=== PATIENT | male | born 2000 | race Caucasian/White ===

== ENCOUNTER 2023-05-09 20:47 | Inpatient (IN) | payer OTHER ==
[2023-05-09 21:54] LABS: URINE APPEARANCE Clear; URINE BILIRUBIN 1+ (NEGATIVE); URINE COLOR Yellow; URINE GLUCOSE (UA) 2+ (NEGATIVE); URINE KETONE 4+ (NEGATIVE); URINE LEUK ESTERASE Negative (NEGATIVE); URINE NITRITE Negative (NEGATIVE); URINE PROTEIN 2+ (NEGATIVE); URINE UROBILINOGEN 0.2 mg/dL (0.2-1.0)
[2023-05-09] MEDS ORDERED: SODIUM CHLORIDE 0.9% 500 ML INFUS.BAG IV ONE (22:21)
[2023-05-09] MEDS ORDERED: ACETAMINOPHEN 1000 MG/100 ML BAG IVPB ONE (22:22)
[2023-05-09 22:27] LABS: EPI CELLS 8.4 /uL (0-25.1); HYALINE CASTS 4.27 /uL (0-3.1); URINE BACTERIA 1.9 /uL (0-1359); URINE RBC 25.5 /uL (0-23.9); URINE WBC 11.1 /uL (0-25.8)
[2023-05-09] MEDS ORDERED: ACETAMINOPHEN INJECTION 100 ML IVPB ONE (22:55)
[2023-05-09 23:38] LABS: BASO % 0.3 % (0-2.0); EOS % 0.2 % (0-4.5); HEMOGLOBIN 17.4 GM/dL (11.7-16.9); LYMPH % 21.6 % (8-40); MCH 27.7 pg (25.7-33.7); MCHC 34.7 g/dl (32.0-35.9); MEAN CELL VOLUME 79.8 fl (80-96); MEAN PLT VOLUME 9.7 fl (7.5-11.1); MONO % 8.9 % (3.8-10.2); PLATELET COUNT 385 10^3/uL (134-434); RBC 6.27 M/mm3 (4.00-5.60); RDW 13.6 % (11.9-15.9); WHITE BLOOD COUNT 10.1 K/mm3 (4.0-10.0)
[2023-05-09 23:43] LABS: INR 1.08 (0.83-1.09); PROTHROMBIN TIME (PATIENT) 12.5 SEC (9.7-13.0)
[2023-05-09 23:53] LABS: CHLORIDE 98 mmol/L (98-107); POTASSIUM 4.9 mmol/L (3.5-5.1); SODIUM 135 mmol/L (136-145)
[2023-05-09 23:54] LABS: CALCIUM 9.6 mg/dL (8.5-10.1)
[2023-05-09 23:55] LABS: ALBUMIN 4.4 g/dl (3.4-5.0); ANION GAP 22 mmol/L (4-13); BLOOD UREA NITROGEN 16.5 mg/dL (7-18); CO2 15 mmol/L (21-32); MAGNESIUM 2.1 mg/dL (1.8-2.4)
[2023-05-09 23:58] LABS: CREATININE 1.6 mg/dL (0.55-1.3); SGOT/AST 36 U/L (15-37); SGPT/ALT 128 U/L (13-61)
[2023-05-10] LABS: BILIRUBIN,TOTAL 0.9 mg/dL (0.2-1); TOT PROT 8.8 g/dl (6.4-8.2)
[2023-05-10 00:01] LABS: ALK PHOS 120 U/L (45-117)
[2023-05-10 00:43] LABS: GLUCOSE,RANDOM 489 mg/dL (74-106)
[2023-05-10] MEDS ORDERED: SODIUM CHLORIDE 0.9% 500 ML INFUS.BAG IV ONE (00:48)
[2023-05-10 02:58] LABS: VENOUS BASE EXCESS -15.9 mmol/L (-2-2); VENOUS O2 SATURATION 67.1 % (70-80); VENOUS PCO2 35.5 mmHg (38-52)
[2023-05-10 03:01] LABS: VENOUS PH 7.148 (7.310-7.410)
[2023-05-10] MEDS ORDERED: INSULIN REGULAR HUMAN 100 UNITS/ML *VIAL IVPUSH ONE (03:02)
[2023-05-10] MEDS ORDERED: POTASSIUM CHLORIDE 10 MEQ in SODIUM CHLORIDE 1,000 ML IVPB SCH (03:15)
[2023-05-10] MEDS ORDERED: INSULIN REGULAR HUMAN 100 UNITS/ML *VIAL SQ ONE (03:18)
[2023-05-10 03:23] LABS: POTASSIUM 4.8 mmol/L (3.5-5.1)
[2023-05-10 03:25] LABS: BLOOD UREA NITROGEN 13.4 mg/dL (7-18)
[2023-05-10 03:28] LABS: CREATININE 1.3 mg/dL (0.55-1.3)
[2023-05-10 03:32] LABS: CALCIUM 7.9 mg/dL (8.5-10.1)
[2023-05-10] MEDS ORDERED: DEXTROSE 50%-WATER 25 GM/50 ML DISP.SYRIN IVPUSH PRN (03:39)
[2023-05-10] MEDS ORDERED: LACTATED RINGERS SOLUTION 1000 ML INFUS.BAG IV ONE (03:39)
[2023-05-10] MEDS ORDERED: D5-1/2NS+20 MEQ KCL - 20 MEQ/1,000 ML INFUS.BAG IV SCH ×2 (03:45→04:15)
[2023-05-10] MEDS ORDERED: INSULIN REGULAR 100 UNITS in SODIUM CHLORIDE 99 ML IVPB SCH (03:45)
[2023-05-10] MEDS ORDERED: ONDANSETRON 4 MG/2 ML VIAL IVPUSH PRN (04:16)
[2023-05-10] MEDS: SODIUM CHLORIDE 0.9%/KCL 20 MEQ/1,000 ML INFUS.BAG IV SCH (05:30)
[2023-05-10 06:03] VITALS: BMI 39.1
[2023-05-10 08:24] LABS: POTASSIUM 3.9 mmol/L (3.5-5.1)
[2023-05-10 08:26] LABS: BLOOD UREA NITROGEN 12.4 mg/dL (7-18)
[2023-05-10 08:29] LABS: CREATININE 1.1 mg/dL (0.55-1.3)
[2023-05-10] MEDS: MUPIROCIN 2% TOPICAL OINTMENT FOR DECOLONIZATION NS SCH ×2 (11:04→21:45)
[2023-05-10 12:01] LABS: POTASSIUM 3.7 mmol/L (3.5-5.1)
[2023-05-10 12:05] LABS: CALCIUM 8.2 mg/dL (8.5-10.1)
[2023-05-10 12:06] LABS: BLOOD UREA NITROGEN 9.4 mg/dL (7-18)
[2023-05-10 12:24] LABS: TOT PROT 6.2 g/dl (6.4-8.2)
[2023-05-10] MEDS ORDERED: INSULIN (LEVEMIR) 100 UNITS/ML UNITS SQ SCH ×4 (13:00→22:00)
[2023-05-10 16:21] LABS: BLOOD UREA NITROGEN 7.8 mg/dL (7-18); CALCIUM 7.9 mg/dL (8.5-10.1)
[2023-05-10 16:24] LABS: CREATININE 1.1 mg/dL (0.55-1.3)
[2023-05-10 16:26] LABS: BILIRUBIN,TOTAL 1.2 mg/dL (0.2-1); TOT PROT 6.1 g/dl (6.4-8.2)
[2023-05-10] MEDS: INSULIN SLIDING SCALE (NOVOLOG) 1 VIAL SQ SCH ×2 (16:27→21:45)
[2023-05-10 16:28] LABS: MAGNESIUM 1.7 mg/dL (1.8-2.4)
[2023-05-10] MEDS ORDERED: CHLORHEXIDINE GLUCONATE 4% CLEANSER FOR DECOLONIZATION TP SCH (22:00)
[2023-05-11] MEDS: SODIUM CHLORIDE 0.9%/KCL 20 MEQ/1,000 ML INFUS.BAG IV SCH (01:39)
[2023-05-11] MEDS ORDERED: ONDANSETRON 4 MG/2 ML VIAL IVPUSH PRN (05:02)
[2023-05-11] MEDS: INSULIN SLIDING SCALE (NOVOLOG) 1 VIAL SQ SCH ×4 (06:47→21:58)
[2023-05-11] MEDS: INSULIN (NOVOLOG) ASPART 100 UNITS/ML 10ML VIAL SQ SCH ×3 (08:19→16:20)
[2023-05-11] MEDS ORDERED: MUPIROCIN 2% TOPICAL OINTMENT FOR DECOLONIZATION NS SCH (10:00)
[2023-05-11] MEDS ORDERED: INSULIN (LEVEMIR) 100 UNITS/ML UNITS SQ SCH ×4 (10:00→17:52)
[2023-05-11 10:32] LABS: INR 1.05 (0.83-1.09); PROTHROMBIN TIME (PATIENT) 12.2 SEC (9.7-13.0)
[2023-05-11 10:49] LABS: POTASSIUM 4.3 mmol/L (3.5-5.1)
[2023-05-11 10:55] LABS: CALCIUM 8.7 mg/dL (8.5-10.1)
[2023-05-11 10:56] LABS: ALBUMIN 3.5 g/dl (3.4-5.0); BLOOD UREA NITROGEN 7.1 mg/dL (7-18); MAGNESIUM 1.7 mg/dL (1.8-2.4)
[2023-05-11 10:59] LABS: PHOSPHOROUS 2.1 mg/dL (2.5-4.9)
[2023-05-11 11:00] LABS: CREATININE 0.9 mg/dL (0.55-1.3)
[2023-05-11 11:01] LABS: BILIRUBIN,TOTAL 1.5 mg/dL (0.2-1)
[2023-05-11 11:20] LABS: BASO % 0.5 % (0-2.0); EOS % 0.6 % (0-4.5); HEMATOCRIT 42.1 % (35.4-49); LYMPH % 29.3 % (8-40); MCH 28.1 pg (25.7-33.7); MCHC 35.6 g/dl (32.0-35.9); MEAN PLT VOLUME 9.6 fl (7.5-11.1); MONO % 8.4 % (3.8-10.2); NEUT % 61.2 % (42.8-82.8); PLATELET COUNT 334 10^3/uL (134-434); RBC 5.32 M/mm3 (4.00-5.60); WHITE BLOOD COUNT 8.6 K/mm3 (4.0-10.0)
[2023-05-11] MEDS ORDERED: INSULIN SLIDING SCALE (NOVOLOG) 1 VIAL SQ ONE (15:20)
[2023-05-11 15:43] LABS: POTASSIUM 3.9 mmol/L (3.5-5.1)
[2023-05-11 15:45] LABS: BLOOD UREA NITROGEN 9.2 mg/dL (7-18)
[2023-05-11 15:49] LABS: CREATININE 1.2 mg/dL (0.55-1.3)
[2023-05-11] MEDS ORDERED: MAGNESIUM SULF 50% (8.12 MEQ/2 ML-1 GM VIAL) IVPB ONE (17:25)
[2023-05-11] MEDS ORDERED: SODIUM PHOSPHATE - 30 MM in SODIUM CHLORIDE 250 ML IVPB ONE (18:15)
[2023-05-11] MEDS ORDERED: CHLORHEXIDINE GLUCONATE 4% CLEANSER FOR DECOLONIZATION TP SCH (22:00)
[2023-05-12] MEDS: INSULIN SLIDING SCALE (NOVOLOG) 1 VIAL SQ SCH ×7 (05:04→16:01)
[2023-05-12] MEDS: INSULIN (NOVOLOG) ASPART 100 UNITS/ML 10ML VIAL SQ SCH (06:42)
[2023-05-12] MEDS ORDERED: INSULIN (NOVOLOG) ASPART 100 UNITS/ML 10ML VIAL SQ SCH (07:45)
[2023-05-12 08:33] LABS: BASO % 0.6 % (0-2.0); EOS % 0.9 % (0-4.5); HEMATOCRIT 40.1 % (35.4-49); HEMOGLOBIN 14.4 GM/dL (11.7-16.9); MCH 28.2 pg (25.7-33.7); MCHC 35.9 g/dl (32.0-35.9); MEAN CELL VOLUME 78.5 fl (80-96); MEAN PLT VOLUME 9.2 fl (7.5-11.1); MONO % 10.6 % (3.8-10.2); NEUT % 46.9 % (42.8-82.8); PLATELET COUNT 285 10^3/uL (134-434); RBC 5.11 M/mm3 (4.00-5.60); RDW 13.2 % (11.9-15.9); WHITE BLOOD COUNT 6.6 K/mm3 (4.0-10.0)
[2023-05-12] MEDS ORDERED: INSULIN SLIDING SCALE (NOVOLOG) 1 VIAL SQ ONE (08:40)
[2023-05-12 08:52] LABS: POTASSIUM 3.9 mmol/L (3.5-5.1)
[2023-05-12 08:58] LABS: ALBUMIN 3.2 g/dl (3.4-5.0); CALCIUM 8.4 mg/dL (8.5-10.1); MAGNESIUM 1.9 mg/dL (1.8-2.4)
[2023-05-12 08:59] LABS: BLOOD UREA NITROGEN 9.5 mg/dL (7-18)
[2023-05-12 09:01] LABS: CREATININE 0.9 mg/dL (0.55-1.3); PHOSPHOROUS 2.8 mg/dL (2.5-4.9)
[2023-05-12 09:03] LABS: BILIRUBIN,TOTAL 0.9 mg/dL (0.2-1); TOT PROT 6.5 g/dl (6.4-8.2)
[2023-05-12] MEDS: INSULIN (NOVOLOG MIX 70/30) 100 UNITS/ML MDV SQ SCH (16:55)
[2023-05-12] MEDS: INSULIN (LEVEMIR) 100 UNITS/ML UNITS SQ SCH (21:13)
[2023-05-12] MEDS ORDERED: INSULIN (LEVEMIR) 100 UNITS/ML UNITS SQ SCH (22:00)
[2023-05-13] MEDS ORDERED: INSULIN (LEVEMIR) 100 UNITS/ML UNITS SQ SCH ×2 (06:00→07:51)
[2023-05-13] MEDS: INSULIN (LEVEMIR) 100 UNITS/ML UNITS SQ SCH ×3 (06:42→21:54)
[2023-05-13] MEDS: INSULIN (NOVOLOG MIX 70/30) 100 UNITS/ML MDV SQ SCH ×2 (06:44→16:37)
[2023-05-13] MEDS: INSULIN SLIDING SCALE (NOVOLOG) 1 VIAL SQ SCH ×3 (06:47→16:36)
[2023-05-13] MEDS ORDERED: INSULIN (NOVOLOG MIX 70/30) 100 UNITS/ML MDV SQ ONE (07:52)
[2023-05-13] MEDS ORDERED: INSULIN (LEVEMIR) 100 UNITS/ML UNITS SQ ONE (07:52)
[2023-05-13 09:45] LABS: POTASSIUM 3.8 mmol/L (3.5-5.1)
[2023-05-13 09:49] LABS: BASO % 0.7 % (0-2.0); EOS % 1.3 % (0-4.5); HEMATOCRIT 41.1 % (35.4-49); LYMPH % 37.9 % (8-40); MCH 28.9 pg (25.7-33.7); MCHC 36.6 g/dl (32.0-35.9); MEAN CELL VOLUME 78.9 fl (80-96); MEAN PLT VOLUME 9.5 fl (7.5-11.1); MONO % 9.7 % (3.8-10.2); NEUT % 50.4 % (42.8-82.8); PLATELET COUNT 306 10^3/uL (134-434); RBC 5.21 M/mm3 (4.00-5.60); RDW 13.4 % (11.9-15.9); WHITE BLOOD COUNT 6.5 K/mm3 (4.0-10.0)
[2023-05-13 09:59] LABS: CALCIUM 8.9 mg/dL (8.5-10.1)
[2023-05-13 10:00] LABS: ALBUMIN 3.4 g/dl (3.4-5.0); BLOOD UREA NITROGEN 11.3 mg/dL (7-18); MAGNESIUM 1.9 mg/dL (1.8-2.4)
[2023-05-13 10:03] LABS: CREATININE 0.8 mg/dL (0.55-1.3); PHOSPHOROUS 2.7 mg/dL (2.5-4.9)
[2023-05-13 10:04] LABS: BILIRUBIN,TOTAL 1.5 mg/dL (0.2-1)
[2023-05-13] MEDS ORDERED: DEXAMETHASONE 0.5 MG TABLET PO ONE (22:00)
[2023-05-14] MEDS: INSULIN (NOVOLOG MIX 70/30) 100 UNITS/ML MDV SQ SCH (06:42)
[2023-05-14] MEDS: INSULIN SLIDING SCALE (NOVOLOG) 1 VIAL SQ SCH ×2 (06:47→11:28)
[2023-05-14 09:44] LABS: BASO % 0.7 % (0-2.0); EOS % 0.2 % (0-4.5); HEMATOCRIT 42.9 % (35.4-49); HEMOGLOBIN 15.2 GM/dL (11.7-16.9); LYMPH % 27.2 % (8-40); MCH 28.1 pg (25.7-33.7); MCHC 35.3 g/dl (32.0-35.9); MEAN CELL VOLUME 79.5 fl (80-96); MEAN PLT VOLUME 9.5 fl (7.5-11.1); MONO % 6.3 % (3.8-10.2); NEUT % 65.6 % (42.8-82.8); PLATELET COUNT 335 10^3/uL (134-434); RDW 13.7 % (11.9-15.9); WHITE BLOOD COUNT 7.1 K/mm3 (4.0-10.0)
[2023-05-14 09:46] LABS: POTASSIUM 4.5 mmol/L (3.5-5.1)
[2023-05-14 10:10] LABS: ALBUMIN 3.5 g/dl (3.4-5.0); BLOOD UREA NITROGEN 11.1 mg/dL (7-18); CALCIUM 9.4 mg/dL (8.5-10.1)
[2023-05-14 10:13] VITALS: RESP 18
[2023-05-14 10:13] LABS: CREATININE 0.9 mg/dL (0.55-1.3)
[2023-05-14 10:15] LABS: TOT PROT 7.2 g/dl (6.4-8.2)
[2023-05-14 14:31] VITALS: BP 134/83; PULSE 100; TEMP 98.6
== END 2023-05-14 16:31 | disposition home or self-care (01) | DRG 420 ==
LOC: JER 20:47 → JERBED 05-10 03:23 → JICU 05-10 06:15 → J6S 05-11 05:00
PROVIDERS: ADMIT Internal Medicine Pulmonary Disease; ATTEND Internal Medicine
DX: E11.10 Type 2 diabetes mellitus with ketoacidosis without coma (principal); N17.9 Acute kidney failure, unspecified; R11.0 Nausea; E86.0 Dehydration; E66.9 Obesity, unspecified; Z68.38 Body mass index [BMI] 38.0-38.9, adult
CPT/HCPCS: 0241U-QW; 36415; 71046-TC-FY; 76705-TC; 80048; 80053; 81003; 82010; 82533; 82550; 82803; 82962; 83036; 83735; 84100; 84132; 84484; 85025; 85610; 93005; 93010; 99285-25